=== PATIENT | female | born 2000 | race Two or more races ===

== ENCOUNTER 2021-10-07 19:44 | Emergency (ER) | payer OTHER, SELFPAY ==
[2021-10-07 19:57] VITALS: BP 133/67; PULSE 118; RESP 18; TEMP 38.1; O2SAT 97; BMI 18.8
--- NOTE | 2021-10-07 20:09 | ED_ITS ---
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 She was diagnosed with Strep throat today at the school and presents asking for antibiotics to treat it. She reports being prescribed penicillin to a mail-in pharmacy and she has no idea when the prescription is going to be sent to her. She reports the throat pain is severe and she would like to get started on antibiotics as soon as possible. She would like a dose now. She reports pain with swallowing, not able to eat much today. She is able to tolerate p.o. fluids. She reports intermittent fevers and chills. MD complaint: Sore throat, strep positive. Onset (ago): day(s) Location: mouth and neck Radiation: non-radiation Severity: severe Severity scale (1-10): 8 Quality: aching and sharp Pain Consistency: constant Relieving factors: medication Exacerbating factors: eating Associated symptoms: loss of appetite and malaise Treatments prior to arrival: none Related Data Previous Rx's Medication Instructions Recorded amoxicillin 500 mg tablet 500 mg PO Q12H #20 tab 10/07/21 Allergies Allergy/AdvReac Type Severity Reaction Status Date / Time No Known Allergies Allergy Verified 10/07/21 19:57 Review of Systems Review of Systems: Constitutional: + Fever, + Chills ENT/Mouth: + sore throat, No Rhinorrhea, + Swallowing Difficulty Cardiovascular: No Chest Pain, No SOB Respiratory: No Cough, No Sputum Gastrointestinal: + Nausea, No Vomiting, No Diarrhea, No abdominal Pain Musculoskeletal: No joint pain, No Myalgias Skin: No Skin Lesions, No rash Neuro: No Weakness, No Numbness, No Dizziness, No Headache Heme/Lymph: No Lymphadenopathy PMFSH Social History Social History Patient : No Physical Exam ED Vital Signs: Vital Signs - 24 hr 10/07/21 19:57 Temperature 100.6 F H Pulse Rate 118 H Respiratory Rate 18 Blood Pressure 133/67 Pulse Oximetry 97 BMI result Body Mass Index 18.8 Appearance: Alert. Oriented X3. No acute distress. Eyes: Normal external inspection ENT: Pharynx with moist mucous membranes. Tonsils with bilateral enlargement, erythema and exudates. Uvula midline. Normal voice, handling secretions normally. Neck: Normal inspection. Neck supple. Tender submandibular lymph nodes CVS: Normal heart rate and rhythm. Pulses normal. Respiratory: No respiratory distress. Breath sounds normal. Skin: Skin warm and dry. Normal skin color. Normal skin turgor. No rashes. Extremities: Normal inspection x4. Neuro: Oriented X 3. Grossly normal, nonfocal Course Course Course Narrative: 20-year-old female presents to the ER for antibiotics to treat strep throat. She was diagnosed earlier today with male and antibiotics sent to a pharmacy and does not know when she will receive them. Exam is consistent with strep throat, no evidence of peritonsillar abscess. 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 Supportive care discussed. Stable for discharge home. Discharge Plan Discharge Clinical Impression: Strep pharyngitis Patient Disposition: Home, Self-Care Instructions: Strep Throat (DC) Additional Instructions: Use warm saltwater gargles several times per day. Take Motrin 600-800 mg every 8 hours as needed for pain and fever. Take prescribed antibiotics as directed, complete the entire course. Rest and drink plenty of fluids. Recommend [id number] Chloraseptic spray as needed for sore throat to help numb the back her throat. You can also try Cepacol lozenges as well. If you develop new or worsening symptoms call 911 or come back to the ER for further evaluation. Prescriptions: New amoxicillin 500 mg tablet 500 mg PO Q12H Qty: 20 0RF Stand Alone Forms: Work/School Release
[2021-10-07] MEDS: Amoxicillin 500 MG CAPSULE PO (20:19)
[2021-10-07] MEDS: Ibuprofen 600 MG TABLET PO (20:19)
== END 2021-10-07 20:47 | disposition home or self-care (01) ==
LOC: HO.ED 20:27
PROVIDERS: Emergency Provider Internal Medicine
DX: J02.0 Streptococcal pharyngitis (principal); J02.8 Acute pharyngitis due to other specified organisms; R07.89 Other chest pain; M54.2 Cervicalgia; Z79.899 Other long term (current) drug therapy
CPT/HCPCS: 99283